=== PATIENT | female | born 1960 | race Caucasian/White ===

== ENCOUNTER 2020-02-15 15:55 | Emergency (ER) | payer OTHER ==
[~2020-02-15] VITALS: Ht 149.9 cm; Wt 72.1 kg
[2020-02-15] MEDS ORDERED: TOPROL XL200 MG (16:34)
[2020-02-15] MEDS ORDERED: ZESTRIL20 MG (16:35)
== END 2020-02-15 19:55 | disposition home or self-care (01) ==
LOC: ER 15:55
DX: S40.012A Contusion of left shoulder, initial encounter (principal); S80.02XA Contusion of left knee, initial encounter; S80.01XA Contusion of right knee, initial encounter; W01.0XXA Fall on same level from slipping, tripping and stumbling without subsequent striking against object, initial encounter; Y93.89 Activity, other specified; Y92.096 Garden or yard of other non-institutional residence as the place of occurrence of the external cause; Y99.8 Other external cause status